=== PATIENT | female | born 1945 | race Caucasian/White ===

== ENCOUNTER 2016-07-30 01:07 | Emergency (ER) | payer MEDICARE, OTHER ==
--- NOTE | 2016-07-30 01:35 | ER Document Report ---
ED Medical Screen (RME) - General Chief Complaint: Breathing Difficulty Stated Complaint: DIFFICULTY BREATHING Mode of Arrival: Ambulatory Information source: Patient, Relative - daughter Notes: Patient presents with her daughter for complaints of abdominal pain that shoots up into her chest makes her feel short of breath. Patient reports she had took a Tylenol with Codeine and started having abdominal pain after that. Patient denies chest pain. Speaking in a clear voice. I have greeted and performed a rapid initial assessment of this patient. A comprehensive ED assessment and evaluation of the patient, analysis of test results and completion of the medical decision making process will be conducted by additional ED providers. TRAVEL OUTSIDE OF THE [place] IN LAST 30 DAYS: No - Related Data Allergies/Adverse Reactions: acetaminophen [From Percocet] Allergy (Verified 07/07/11 11:46) oxycodone HCl [From Percocet] Allergy (Verified 07/07/11 11:46) Past Medical History - Social History Chew tobacco use (# tins/day): No Frequency of alcohol use: None Drug Abuse: None - Past Medical History Cardiac Medical History: Reports: Hx Hypertension Endocrine Medical History: Reports: Hx Diabetes Mellitus Type 2 Renal/ Medical History: Denies: Hx Peritoneal Dialysis GI Medical History: Reports: Hx Gastroesophageal Reflux Disease Musculoskeltal Medical History: Reports Hx Arthritis Past Surgical History: Reports: Hx Cholecystectomy, Hx Hysterectomy, Hx Orthopedic Surgery - knee replacement - Immunizations Hx Diphtheria, Pertussis, Tetanus Vaccination: Yes Physical Exam - Vital signs Vitals: Pulse BP 60 150/66 H 07/30/16 01:17 07/30/16 01:17 Course - Vital Signs Vital signs: Temp Pulse Resp BP Pulse Ox 60 150/66 H 07/30/16 01:17 07/30/16 01:17
[2016-07-30] MEDS ORDERED: MAG HYDROX/AL HYDROX/SIMETH SUSP 30 ML UDCUP PO ONE (03:08)
[2016-07-30] MEDS ORDERED: METOCLOPRAMIDE HCL ORAL SOLN 10 MG/10 ML UDCUP PO ONE (03:08)
[2016-07-30] MEDS ORDERED: LIDOCAINE 2% VISCOUS SOLN 20 ML UDCUP PO ONE (03:08)
--- NOTE | 2016-07-30 03:33 | ER Document Report ---
ED General - General Chief Complaint: Breathing Difficulty Stated Complaint: DIFFICULTY BREATHING Mode of Arrival: Ambulatory Information source: Patient, Relative - daughter Notes: Pt. presents to the emergency department with complaints of epigastric abdominal pain. Patient reports she had a toothache last night and took Tylenol No. 3 around 2300. She then laid down and started noticing abdominal distention. She reports pressure against her diaphragm. She has a history of acid reflux, she has not taken any type of antacid meds. She reports the pain makes her feel short of breath. She denies other symptoms such as fever vomiting diarrhea. Patient's daughter at her side reports patient cannot take oxycodone without it giving her a stomachache. She's not sure why her mother decided to take Tylenol with codeine. She reports patient's had a heart attack this past summer and they are all little anxious. Patient denies chest pain. TRAVEL OUTSIDE OF THE [place] IN LAST 30 DAYS: No - HPI Onset: Just prior to arrival Onset/Duration: Persistent Quality of pain: Achy Pain Level: 1 Associated symptoms: None Exacerbated by: Denies Relieved by: Denies Similar symptoms previously: No Recently seen / treated by doctor: No - Related Data Allergies/Adverse Reactions: acetaminophen [From Percocet] Allergy (Verified 07/07/11 11:46) oxycodone HCl [From Percocet] Allergy (Verified 07/07/11 11:46) Past Medical History - General Information source: Patient, Relative - daughter - Social History Smoking Status: Never Smoker Chew tobacco use (# tins/day): No Frequency of alcohol use: None Drug Abuse: None Lives with: Family Family History: Reviewed & Not Pertinent Patient has suicidal ideation: No Patient has homicidal ideation: No - Past Medical History Cardiac Medical History: Reports: Hx Hypertension Endocrine Medical History: Reports: Hx Diabetes Mellitus Type 2 Renal/ Medical History: Denies: Hx Peritoneal Dialysis GI Medical History: Reports: Hx Gastroesophageal Reflux Disease Musculoskeltal Medical History: Reports Hx Arthritis Past Surgical History: Reports: Hx Cholecystectomy, Hx Hysterectomy, Hx Orthopedic Surgery - knee replacement - Immunizations Hx Diphtheria, Pertussis, Tetanus Vaccination: Yes Hx Pneumococcal Vaccination: 02/27/11 Review of Systems - Review of Systems Notes: Review HPI for review of systems., All other systems negative Physical Exam - Vital signs Vitals: Pulse BP 60 150/66 H 07/30/16 01:17 07/30/16 01:17 - Notes Notes: PHYSICAL EXAMINATION: GENERAL: Well-appearing and in no acute distress HEAD: Atraumatic, normocephalic. EYES: Pupils equal round and reactive to light, extraocular movements intact, sclera anicteric, conjunctiva are normal. ENT: nares patent, oropharynx clear without exudates. Moist mucous membranes. NECK: Normal range of motion, supple without lymphadenopathy LUNGS: CTAB and equal. No wheezes rales or rhonchi. HEART: Regular rate and rhythm without murmurs ABDOMEN: Soft, no tenderness. No guarding, no rebound EXTREMITIES: Normal range of motion, no pitting edema. No cyanosis. NEUROLOGICAL: Cranial nerves grossly intact. Normal sensory/motor exams. PSYCH: Normal mood, normal affect. SKIN: Warm, Dry, normal turgor, no rashes or lesions noted Course - Re-evaluation Re-evalutation: 07/30/16 03:33 Chest x-ray negative EKG sinus rhythm. 07/30/16 03:47 After talking with daughter and thinking patient may have a little bit of reflux I ordered a GI cocktail. Patient was given the GI cocktail. She reports no relief of symptoms. She reports feels like she's having trouble getting a deep breath. Patient reports that when the symptoms started it like it was coming up her chest and she was having hard time breathing and she became very diaphoretic. After discussing this with the patient I decided to initiate cardiac enzymes. Daughter was instructed on why and time frame. 07/30/16 06:15 I have consulted the attending provider dr bray per [facility] guidelines, advised ct abd iv contrast. pt reports she takes extra strength tylenol every now and then for arthritis. she reports she only took one T#3. 07/30/16 07:[address] scan results with Dr. Bray and he agrees discharge patient follow up with primary care provider. Patient were instructed on results and given a copy of the lab reports and CT chest x-ray. There instructed to follow up with Dr. Feng. They verbalized understanding. Patient denies pain. Denies nausea vomiting. Patient reports she's tired and ready go home. The patient presents with abdominal pain without signs of peritonitis or other life threatening or serious etiology. The patient appears stable for discharge and has been instructed to return immediately if the symptoms worsen in any way or in 8-12 hours if not improved for reevaluation. The patient has been instructed to return if the symptoms worsen or change in any way. - Vital Signs Vital signs: Temp Pulse Resp BP Pulse Ox 60 8 L 125/60 98 07/30/16 01:17 07/30/16 07:29 07/30/16 07:29 07/30/16 07:29 - Laboratory Result Diagrams: 07/30/16 04:33 07/30/16 04:33 Laboratory results interpreted by me: 07/30/16 07/30/16 07/30/16 04:33 04:33 04:33 BUN 27 H Est GFR (Non-Af Amer) 49 L Glucose 204 H AST 219 H ALT 98 H Lipase 859.4 H Urine Blood SMALL H Ur Leukocyte Esterase SMALL H - Diagnostic Test Radiology reviewed: Image reviewed, Reports reviewed - EKG Interpretation by Me EKG shows normal: Sinus rhythm Discharge - Discharge Clinical Impression: Epigastric pain, Difficulty breathing, Elevated lipase, Elevated liver enzymes Condition: Stable Disposition: HOME, SELF-CARE Instructions: Abdominal Pain ([facility]), Liver Function Abnormality ([facility]) Additional Instructions: *You have been evaluated for difficulty breathing, abdominal pain, elevated lipase and liver enzymes *Follow up with Dr Feng within one week- take your labs and CT report with you *Return to ED for worsening condition, changes, needs, difficulty breathing, concerns *Return to ED if not better in 24 hours Forms: Elevated Blood Pressure
[2016-07-30 04:47] LABS: APPEARANCE,URINE SLIGHTLY-CLOUDY; BILIRUBIN,URINE NEGATIVE (NEGATIVE); GLUCOSE, URINE NEGATIVE (NEGATIVE); KETONES,URINE NEGATIVE (NEGATIVE); LEUKOCYTE ESTERASE,URINE SMALL (NEGATIVE); NITRITE,URINE NEGATIVE (NEGATIVE); PROTEIN,URINE NEGATIVE (NEGATIVE); URINE SPECIFIC GRAVITY 1.032; UROBILINOGEN,URINE NEGATIVE mg/dL (<2.0)
[2016-07-30 04:48] LABS: ABSOLUTE EOSINOPHILS # (AUTO) 0.1 10^3/uL (0.0-0.6); ABSOLUTE LYMPHOCYTES (AUTO) 2.4 10^3/uL (0.5-4.7); ABSOLUTE MONOCYTES (AUTO) 0.5 10^3/uL (0.1-1.4); ABSOLUTE NEUT (AUTO) 4.2 10^3/uL (1.7-8.2); BASOPHILS % (AUTO) 0.7 % (0-2); LYMPHOCYTES % (AUTO) 33.2 % (13-45); MEAN CORPUSCULAR HEMOGLOBIN 30.9 pg (27.0-33.4); MEAN CORPUSCULAR HGB CONC 33.3 g/dL (32.0-36.0); MEAN CORPUSCULAR VOLUME 93 fl (80-97); MONOCYTES % (AUTO) 7.1 % (3-13); RED BLOOD COUNT 4.53 10^6/uL (3.72-5.28); RED CELL DISTRIBUTION WIDTH 13.4 % (11.5-14.0); WHITE BLOOD COUNT 7.2 10^3/uL (4.0-10.5)
[2016-07-30 05:08] LABS: ALANINE AMINOTRANSFERASE 98 U/L (9-52); ALBUMIN 4.5 g/dL (3.5-5.0); ALKALINE PHOSPHATASE 85 U/L (38-126); ANION GAP 13 (5-19); ASPARTATE AMINO TRANSFERASE 219 U/L (14-36); BLOOD UREA NITROGEN 27 mg/dL (7-20); CALCIUM 9.7 mg/dL (8.4-10.2); CARBON DIOXIDE 26 mmol/L (22-30); CHLORIDE 103 mmol/L (98-107); CREATINE KINASE 74 U/L (30-135); CREATININE RESULT 1.09 mg/dL (0.52-1.25); GLUCOSE 204 mg/dL (75-110); SODIUM 141.8 mmol/L (137-145); TOTAL PROTEIN 7.5 g/dL (6.3-8.2)
[2016-07-30 05:18] LABS: CREATINE KINASE MB 1.56 ng/mL (<4.55)
[2016-07-30 05:30] LABS: TROPONIN I < 0.012 ng/mL
[2016-07-30 07:34] VITALS: BP 125/60
--- NOTE | 2016-07-30 09:25 | EKG REPORT ---
SEVERITY:- NORMAL ECG - SINUS RHYTHM : Confirmed by: Alonso Kevin MD 30-Jul-2016 09:25:20
== END 2016-07-30 08:11 | disposition home or self-care (01) ==
LOC: ER 01:07
DX: R06.00 Dyspnea, unspecified (principal); R10.13 Epigastric pain; R74.8 Abnormal levels of other serum enzymes; K08.9 Disorder of teeth and supporting structures, unspecified; I10 Essential (primary) hypertension; E11.9 Type 2 diabetes mellitus without complications; K21.9 Gastro-esophageal reflux disease without esophagitis; Z88.6 Allergy status to analgesic agent; Z90.49 Acquired absence of other specified parts of digestive tract; Z90.710 Acquired absence of both cervix and uterus; Z96.659 Presence of unspecified artificial knee joint
CPT/HCPCS: 93005; 99285; 36415; 82553; 82550; 83690; 85025; 80053; 81001; 84484; 80074; 71020; 74177; 93010; J3490; A9270

== ENCOUNTER → 2019-12-27 | Outpatient (CLI) | payer MEDICARE, OTHER ==
--- NOTE | 2019-12-27 13:17 | RADIOLOGY REPORT (SQ) ---
EXAM DESCRIPTION: MRI RT UPPER JOINT WITHOUT IMAGES COMPLETED DATE/TIME: 12/27/2019 10:39 am REASON FOR STUDY: (M25.531)PAIN IN RIGHT WRIST M25.531 PAIN IN RIGHT WRIST COMPARISON: None. TECHNIQUE: Right wrist images acquired and stored on PACS. Multiplanar images include fat sensitive sequences as T1, fluid sensitive sequences as FST2/STIR, cartilage sensitive sequences as FSPD, grad ient echo sequences. LIMITATIONS: None. FINDINGS: BONE MARROW: No alteration of signal to suggest marrow replacement or edema. No occult fra cture. No large osteophytes. CARPAL ALIGNMENT AND ARTICULATION: Intact. Moderate arthropathy proximal and middle carpal rows. Mo derate arthropathy base of 1st metacarpal. EFFUSION: None noted. No loose bodies. SCAPHOLUNATE LIGAMENT: Intact without tear. LUNATE-TRIQUETRAL LIGAMENT: Intact without tear. TFC COMPLEX: Radial and ulnar attachments normal. Meniscus intact. Extensor carpi ulnaris tendon norm al without tendinopathy. EXTRINSIC LIGAMENTS AND DISTAL RADIO-ULNAR JOINT: Dorsal and volar distal RUJ intact without subluxat ion of the distal ulna. 1-6 EXTENSOR COMPARTMENTS: Normal. CARPAL TUNNEL AND MEDIAN NERVE: Prior release. No evidence of postoperative complication. OTHER: 2.5 x 7 mm AP by transverse diameter focus of fluid signal between the radial styloid and the flexor tendons. Cyst versus small varix. IMPRESSION: 1. Small cyst between the flexor tendons and radial styloid. Varix considered less likely. 2. Prior carpal tunnel release. 3. Moderate degenerative changes. TECHNICAL DOCUMENTATION: JOB ID: [id number] 2010 [employer]- All Rights Reserved Reading location - IP/workstation name: [email or web address]
== END ==
LOC: RAD 09:50
PROVIDERS: ATTEND Physician Assistant
DX: M25.531 Pain in right wrist (principal)